=== PATIENT | female | born 1985 | race Caucasian/White ===

== ENCOUNTER → 2018-02-21 | Outpatient (CLI) | payer BC | END | disposition home or self-care (01) | LOC: C.LABSPEC 15:42 | PROVIDERS: ATTEND Obstetrics & Gynecology | DX: Z34.03 Encounter for supervision of normal first pregnancy, third trimester (principal) ==

== ENCOUNTER 2020-02-02 07:50 | Inpatient (IN) ==
[2020-02-02] MEDS ORDERED: OXYTOCIN 30 UNITS/500 ML BAG IV PRN ×3 (08:32→19:15)
[2020-02-02 08:56] LABS: Hematocrit (blood only) 38.3 % (37-47); Hemoglobin 12.1 g/dL (12.0-16.0); Mean Corpuscular Hemoglobin 27.8 pg (25-34); Mean Platelet Volume 10.6 fL (7.4-10.4); Platelet Count 251 K/uL (130-400); RDW Coefficient of Variation 14.8 % (11.5-14.5); RDW Standard Deviation 47.6 fL (36.4-46.3); Red Blood Count 4.35 M/uL (4.2-5.4); White Blood Count 7.71 K/uL (4.8-10.8)
[2020-02-02 08:57] LABS: Mean Corpuscular Hgb Conc 31.6 g/dL (32-36)
--- NOTE | 2020-02-02 09:02 | History & Physical Report ---
Date of Service February 02, 2020 Assessment & Plan (1) Encounter for elective induction of labor: fetus category one. plan pit induction. arom when appropriate. epidural on demand. efw 7-8#, anticipate . Admission and Anticipated Discharge Date Admission Date: February 02, 2020 History of Present Illness Chief Complaint: induction Primary Care Provider: LOBO Can Patient is a 34yowf with iup at 39 5/7 weeks who presents for elective induction of labor. Her cervix is favorable. Her complicated by ama with normal testing, low risk panorama. hx of ghtn in previous , no issues in this , was on baby asa. She notes +fm. no lof/vb. rare contractions labs--O+/ab-/ri/rprnr/hepb-/hiv-/gc/ct-/gbs-/declined cf/sma/ panorama low risk male/ failed 16 week gtt with nl 2 hr gtt x 2. Allergies Allergy/AdvReac Type Severity Reaction Status Date / Time Pertussis Vaccines Allergy febrile Verified 02/01/20 11:53 seizures Home Medications Home Medications Medication Instructions Recorded Confirmed Type prenat.vits,yared,udc-ebab-jmcis 1 tab PO DAILY 07/03/19 02/02/20 History aspirin 81 mg tablet,delayed 81 mg PO DAILY 08/21/19 02/02/20 History release magnesium 200 mg tablet 400 mg PO DAILY tab 11/06/19 02/02/20 History Patient History Medical History (Updated 02/02/20 @ 09:06 by Radha Newman MD, FACOG) Breast mass (Inactive) History of chicken pox History of PCOS Hx of migraines Hypertension (Inactive) ghtn in first Left hip pain induced hypertension Surgical History S/P rhinoplasty S/P tonsillectomy S/P wisdom tooth extraction Family History Father Diabetes High cholesterol Hypertension Thyroid disease Anxiety and depression Mother High cholesterol Hypertension Social History Preferred Language: Turkish Beliefs That Will Affect Care: None marital status: marital status details: Augusto Corrigan (36) [phone] Current Living Situation: Family Current Living Situation Comment: [place] with , daughter and 2 dogs current occupational status: employed current occupation: [employer] Other Information That Helps Us Care for You: No Feels Safe at Home: Yes Safety Concerns: Feels Safe At This Time Smoking Status: Never smoker Hx Alcohol Use: No Hx Substance Use: No OB History g1--03/15, , 38 week, induced for ghtn, 6#13oz [employer] History no stds, no abnl paps Review of Systems All systems reviewed & are unremarkable except as noted in HPI & below Physical Exam Constitutional: WD/WN, vitals as above Gastrointestinal (Abdomen): soft, gravid, nt Psychiatric: A+Ox3, euthymic affect Genitourinary: cx--2+/50/-3/mid/soft (cannot reach internal os well) toco--rare contraction efm--135 with mod variability, accels to 150s, no decels Results & Data ([facility]) Vital Signs (Past 12 Hours) Vital Signs Temp Pulse Resp BP 02/02/20 08:20 36.7 C 120 H 20 136/84 02/02/20 07:54 120 H 20 136/84 Code Status & VTE Plan VTE Prophylaxis Plan VTE Prophylaxis will be ordered: No Coding Level of Care Code None Diagnoses Encounter for elective induction of labor Z34.90
[2020-02-02] MEDS: LACTATED RINGER'S 1,000 ML IV PRN ×2 (09:11→12:47)
[2020-02-02 10:37] LABS: Albumin Level 2.4 gm/dl (3.4-5.0); Calcium 8.6 mg/dl (8.5-10.1); Creatinine Clr Calc Pharmacy 172.8 ml/min; Est GFR (African American) 139.2; Est GFR (Non-African American) 120.1; Potassium 3.7 mmol/L (3.5-5.1)
[2020-02-02 10:40] LABS: Albumin Globulin Ratio 0.6 (0.9-2); Bilirubin,Total 0.7 mg/dl (0.2-1); Globulin 3.9 gm/dl (2.5-4.0); Total Protein 6.3 gm/dl (6.4-8.2)
[2020-02-02] MEDS ORDERED: ePHEDrine sulfate 50 MG/ML AMP ONE (12:22)
[2020-02-02] MEDS ORDERED: fentaNYL citrate 100 MCG/2 ML VIAL ONE (12:23)
[2020-02-02] MEDS ORDERED: BUPIVACAINE 0.25% 30 ML VIAL ONE (12:23)
[2020-02-02] MEDS ORDERED: fentaNYL 2MCG/ML ROPIV 1.25MG/ML 100 ML BAG EPI ONE (12:24)
--- NOTE | 2020-02-02 12:37 | Anesthesiology Consultation ---
Date of Service February 02, 2020 Assessment & Plan (1) Encounter for pre-operative examination: Chart Review Chart Review: Acceptable Risk for Labor Epidural Consults Requested none ASA ASA2 Proposed Anesthesia Anesthesia Type: Labor Epidural Risk / Benefits Reviewed With: PT / POA / Parent / Guardian, Accepts Plan and Informed Consent Obtained History Height/Weight Height: 5 ft 6 in Weight: 109.656 kg Allergies Allergy/AdvReac Type Severity Reaction Status Date / Time Pertussis Vaccines Allergy febrile Verified 02/01/20 11:53 seizures Medications Home Medications Medication Instructions Recorded Confirmed Last Taken prenat.vits,yared,hzs-qkpj-bnheo 1 tab PO DAILY 07/03/19 02/02/20 02/01/20 07:30 aspirin 81 mg tablet,delayed 81 mg PO DAILY 08/21/19 02/02/20 02/01/20 07:30 release magnesium 200 mg tablet 400 mg PO DAILY tab 11/06/19 02/02/20 02/01/20 07:30 Active Medications Generic Name Dose Route Start Last Admin Trade Name Freq PRN Reason Stop Dose Admin Lactated Ringer's 1,000 mls @ 125 mls/hr 02/02/20 08:32 02/02/20 12:13 Lr IV 02/04/20 08:31 999 mls/hr .Q8H PRN Infusion L&D Protocol Protocol Oxytocin 30 units in 500 mls @ 10 mls/hr 02/02/20 08:32 02/02/20 11:55 Pitocin IV 02/04/20 08:31 0.72 units/hr .Q24H PRN 12 mls/hr Labor Induction/Augmentation Titration Protocol 0.6 UNITS/HR Past Medical History Medical History Breast mass (Inactive) History of chicken pox History of PCOS Hx of migraines Hypertension (Inactive) ghtn in first Left hip pain induced hypertension Exercise / Class Metabolic Activity II 4-5 Yardwork/Stairs/Walk up hill Past Family History Family History Father Diabetes High cholesterol Hypertension Thyroid disease Anxiety and depression Mother High cholesterol Hypertension Past Surgical History Surgical History S/P rhinoplasty S/P tonsillectomy S/P wisdom tooth extraction Past Anesthesia History No Hx of Anesthesia Complications and No Family Hx of Anesthesia Complications History of PONV No Hx of PONV and No Hx of Motion Sickness Social History Smoking Status: Never smoker Hx Alcohol Use: No Hx Substance Use: No Physical Exam Vital Signs Last Vital Signs Temp 98.2 F 02/02/20 12:03 Pulse 88 02/02/20 12:27 Resp 20 02/02/20 12:03 BP 161/89 H 02/02/20 12:27 ENMT Mouth: no dentition abnormality Thyromental Distance: > or= 3.5 Finger Breadths Mallampati Class: II Neck normal visual inspection Respiratory normal respiratory effort Auscultation: lungs clear to auscultation bilaterally Cardiovascular Rate/Rhythm: regular rate and regular rhythm Testing Laboratory Results 02/02/20 08:39 02/02/20 09:50
[2020-02-02] MEDS ORDERED: NALOXONE HCL 1 MG in SODIUM CHLORIDE 0.9% 1000ML 1,000 ML IV PRN (12:58)
[2020-02-02] MEDS ORDERED: fentaNYL 2MCG/ML ROPIV 1.25MG/ML 100 ML BAG EPI PRN (12:58)
[2020-02-02] MEDS ORDERED: ONDANSETRON INJ 2 MG/ML 2 ML VIAL IV PRN (12:58)
[2020-02-02] MEDS ORDERED: ePHEDrine sulfate 50 MG/ML AMP IV PRN (12:58)
[2020-02-02] MEDS ORDERED: DiphenhydrAMINE HCL 50 MG/ML VIAL IV PRN (12:58)
[2020-02-02] MEDS ORDERED: NALOXONE HCL 0.4 MG/1 ML VIAL/CARP IV PRN (12:58)
--- NOTE | 2020-02-02 13:41 | Labor Progress Brief Note ---
Date of Service February 02, 2020 Subjective comfortable after epidural Assessment & Plan (1) Encounter for elective induction of labor: continue current management. Labs are all nl. Some borderline bps but no s/s of pet. anticipate . Admission and Anticipated Discharge Date Admission Date: February 02, 2020 Physical Exam Constitutional: WD/WN, vitals as above Psychiatric: A+Ox3, euthymic affect Genitourinary: cx--4-5/75/-2/ant arom--clear toco--q2-3min, pit at 12 efm--130s wtih mod variability , accels to 150s, no decels Results & Data ([facility]) Vital Signs (Past 12 Hours) Vital Signs Temp Pulse Resp BP Pulse Ox 02/02/20 13:36 86 99 02/02/20 13:32 82 140/74 02/02/20 13:31 83 98 02/02/20 13:26 82 98 02/02/20 13:21 84 98 02/02/20 13:17 81 137/77 02/02/20 13:16 82 98 02/02/20 13:11 81 98 02/02/20 13:06 91 H 98 02/02/20 13:02 85 20 130/74 02/02/20 13:01 85 99 02/02/20 13:00 88 142/78 H 02/02/20 12:58 89 144/80 H 02/02/20 12:56 90 16 145/81 H 99 02/02/20 12:54 87 145/76 H 02/02/20 12:53 92 H 20 149/82 H 02/02/20 12:35 93 H 168/94 H 02/02/20 12:27 88 161/89 H 02/02/20 12:03 36.8 C 20 02/02/20 11:28 75 145/92 H 02/02/20 10:27 86 146/82 H 02/02/20 09:57 82 20 134/77 02/02/20 09:45 86 151/88 H 02/02/20 09:42 89 20 168/101 H 02/02/20 09:27 107 H 16 129/76 02/02/20 08:20 36.7 C 120 H 20 136/84 02/02/20 07:54 120 H 20 136/84 Coding Level of Care Code None Diagnoses Encounter for elective induction of labor Z34.90
--- NOTE | 2020-02-02 15:47 | Obstetrical Progress Note ---
Date of Service February 02, 2020 Assessment & Plan (1) Encounter for elective induction of labor: reassuring baby, will begin second stage soon. anticipate . Admission and Anticipated Discharge Date Admission Date: February 02, 2020 Subjective Feeling some pressure Review of Systems Review of Systems: All systems reviewed & are unremarkable except as noted in HPI & below Physical Exam Constitutional: WD/WN, vitals as above Psychiatric: A+Ox3, euthymic affect Genitourinary: cx--ant lip/0 toco--q2-3min efm--140s with mod variability, accels present, variable/early with contractions Results & Data ([facility]) Vital Signs (Past 12 Hours) Vital Signs Temp Pulse Resp BP Pulse Ox 02/02/20 15:41 94 H 99 02/02/20 15:36 92 H 99 02/02/20 15:34 90 133/77 02/02/20 15:31 94 H 98 02/02/20 15:26 99 H 99 02/02/20 15:21 85 98 02/02/20 15:18 36.7 C 95 H 20 125/72 02/02/20 15:16 89 98 02/02/20 15:06 89 99 02/02/20 15:03 94 H 139/68 02/02/20 15:01 89 98 02/02/20 14:56 92 H 98 02/02/20 14:51 85 98 02/02/20 14:49 83 153/79 H 02/02/20 14:46 85 98 02/02/20 14:41 87 97 02/02/20 14:36 86 98 02/02/20 14:34 88 129/69 02/02/20 14:31 88 97 02/02/20 14:26 83 97 02/02/20 14:21 88 97 02/02/20 14:17 86 125/70 02/02/20 14:16 92 H 98 02/02/20 14:11 87 99 02/02/20 14:06 84 99 02/02/20 14:02 36.7 C 82 16 135/77 02/02/20 14:01 85 98 02/02/20 13:56 82 98 02/02/20 13:51 82 98 02/02/20 13:48 78 129/71 02/02/20 13:46 89 97 02/02/20 13:41 89 98 02/02/20 13:36 86 99 02/02/20 13:32 82 140/74 02/02/20 13:31 83 98 02/02/20 13:26 82 98 02/02/20 13:21 84 98 02/02/20 13:17 81 137/77 02/02/20 13:16 82 98 02/02/20 13:11 81 98 02/02/20 13:06 91 H 98 02/02/20 13:02 85 20 130/74 02/02/20 13:01 85 99 02/02/20 13:00 88 142/78 H 02/02/20 12:58 89 144/80 H 02/02/20 12:56 90 16 145/81 H 99 02/02/20 12:54 87 145/76 H 02/02/20 12:53 92 H 20 149/82 H 02/02/20 12:35 93 H 168/94 H 02/02/20 12:27 88 161/89 H 02/02/20 12:03 36.8 C 20 02/02/20 11:28 75 145/92 H 02/02/20 10:27 86 146/82 H 02/02/20 09:57 82 20 134/77 02/02/20 09:45 86 151/88 H 02/02/20 09:42 89 20 168/101 H 02/02/20 09:27 107 H 16 129/76 02/02/20 08:20 36.7 C 120 H 20 136/84 02/02/20 07:54 120 H 20 136/84 PG Care Time/CCT Total # of Minutes Spent Total Time Spent with Patient: Total time spent is greater than 50% in coordination of care (as documented) at patient's floor/unit and/or counseling patient: Coding Level of Care Code None Diagnoses Encounter for elective induction of labor Z34.90
[2020-02-02] MEDS ORDERED: ACETAMINOPHEN 325 MG TAB PO PRN (19:04)
[2020-02-02] MEDS ORDERED: OXYCODONE/ACETAMINOPHEN 5mg/325mg TAB PO PRN (19:04)
--- NOTE | 2020-02-02 19:07 | Delivery Summary ---
Vaginal Delivery Summary Date of Service February 02, 2020 Vaginal Delivery Summary Pre-operative Diagnosis: at 39 weeks elective induction Post-operative Diagnosis: same Procedure: pitocin induction epidural arom periclitoral tear with repair EBL: 300cc Anesthesia: epidural Procedure: The patient pushed for 2 contractions to deliver a viable male infant in umang position. The nose and mouth were bulb suctioned on the perineum and the rest of the infant was then delivered without difficulty. The baby was vigorous. The nose and mouth were again bulb suctioned and the was placed in the maternal abdomen for drying and attention. Cord was clamped and cut at just after deliver. Cord blood was collected for private collection. Cord blood obtained. Placenta delivered spontaneous, intact with a three vessel cord. Cervix/sulci/rectum were intact. A small periclitoral laceration was repaired in the normal standard fashion. Hemostasis obtained with dilute pitocin and fundal massage. Apgars were 8/9. Mother and baby doing well at the end of the delivery.
[2020-02-02] MEDS ORDERED: HYDROCORTISONE ACETATE 25 MG SUPP PR PRN (19:15)
[2020-02-02] MEDS ORDERED: SUPERCREAM 0.870% 15 GM JAR EXT PRN (19:15)
[2020-02-02] MEDS ORDERED: BENZOCAINE 20% AER SPR 82.5 GM CAN EXT PRN (19:15)
[2020-02-02] MEDS ORDERED: bisacodyL 10 MG SUPP PR PRN (19:15)
--- NOTE | 2020-02-02 19:59 | Anesthesia Procedure Note ---
Date of Service February 02, 2020 Anesthesia Post Epidural Note Vital Signs Vital Signs: Temp Pulse Resp BP Pulse Ox 98.6 F 99 H 18 132/81 99 02/02/20 19:07 02/02/20 19:52 02/02/20 19:52 02/02/20 19:52 02/02/20 18:41 Pain Intensity Abdomen: Pain Intensity: 5 Notes Mental Status: alert / awake / arousable and participated in evaluation Nausea / Vomiting: adequately controlled Pain: adequately controlled Airway Patency, RR, SpO2: stable & adequate BP & HR: stable & adequate Hydration State: stable & adequate Neuraxial Anesthesia: was administered and sensory block is resolving Anesthetic Complications: no major complications apparent and Pt Satisfied with anesthetic care Epidural: Removed without complications and With tip intact
[2020-02-02] MEDS: DOCUSATE SODIUM 100 MG CAP PO SCH (22:01)
[2020-02-03] MEDS: IBUPROFEN 600 MG TAB PO PRN ×3 (02:25→16:15)
[2020-02-03 06:15] LABS: Hematocrit (blood only) 35.8 % (37-47); Hemoglobin 11.5 g/dL (12.0-16.0)
--- NOTE | 2020-02-03 06:42 | Obstetrical Progress Note ---
Date of Service February 03, 2020 Assessment & Plan (1) Status post vaginal delivery: Doing well. Routine care. BPs slightly elevated. no s/s of pet. Will continue to monitor. Subjective Ambulation: ambulating normally Voiding: no voiding problems Passing Gas:: No Diet Tolerance:: regular diet Lochia:: Small Feeding Type:: breast feeding Physical Exam Constitutional WD/WN, vitals as above Cardiovascular Extremities: + edema (tr) Gastrointestinal (Abdomen) soft, nt, nd ff/nt at u Psychiatric A+Ox3, euthymic affect Results & Data ([facility]) Vital Signs (Past 12 Hours) Vital Signs Temp Pulse Pulse Resp BP BP Pulse Ox 02/03/20 03:30 36.5 C 88 18 115/79 02/02/20 23:40 36.4 C L 98 H 18 148/90 H 02/02/20 21:31 36.8 C 92 H 18 144/80 H 02/02/20 20:52 106 H 18 134/75 02/02/20 20:37 103 H 140/92 02/02/20 20:22 106 H 18 150/95 H 02/02/20 20:07 99 H 139/84 02/02/20 19:52 99 H 18 132/81 02/02/20 19:37 102 H 18 148/80 H 02/02/20 19:22 97 H 18 146/80 H 02/02/20 19:07 37.0 C 104 H 18 139/71 02/02/20 18:52 111 H 137/70 02/02/20 18:48 114 H 143/75 H 02/02/20 18:41 128 H 99
[2020-02-03] MEDS ORDERED: PRENATAL VITAMIN 1 TAB PO SCH (08:00)
[2020-02-03] MEDS: DOCUSATE SODIUM 100 MG CAP PO SCH (08:28)
[2020-02-03] MEDS ORDERED: bisacodyL 5 MG TABEC PO SCH (20:00)
== END 2020-02-03 19:55 | disposition home or self-care (01) | DRG 807 ==
LOC: 4S1 07:50 → 4S2 21:17